=== PATIENT | female | born 1965 | race American Indian/Alaskan Native ===

== ENCOUNTER 2018-06-28 13:36 | Inpatient (IN) | payer BC ==
[2018-06-28] MEDS ORDERED: Sodium Chloride 0.9% 1,000 ML IV ONE (17:30)
--- NOTE | 2018-06-28 17:42 | C.PDOC ---
History Of Present Illness 52 years old female with no past medical history is sent to ED by Dr. Reed for admission for acute hepatitis, dehydration, and generalized weakness. Patient also complaints of chest pain. Denies back pain, abdominal pain, vomiting, diarrhea, smoking, drinking, drug use, or any other complaints. Patient states past surgical history of gall bladder removal. Allergies: * Codeine Time Seen by Provider: 06/28/18 17:15 Chief Complaint (Nursing): Back Pain History Per: Patient History/Exam Limitations: no limitations Onset/Duration Of Symptoms: Hrs Current Symptoms Are (Timing): Still Present Previous Symptoms: None Exacerbating Factor(s): Nothing Recent travel outside of the [place]: No Past Medical History Reviewed: Historical Data, Nursing Documentation, Vital Signs Vital Signs: Last Vital Signs Temp 98.7 F 06/28/18 16:08 Pulse 73 06/28/18 16:08 Resp 15 06/28/18 16:08 BP 140/85 06/28/18 16:08 Pulse Ox 100 06/28/18 16:08 - Medical History PMH: No Chronic Diseases Family History: States: No Known Family Hx - Social History Hx Alcohol Use: No Hx Substance Use: No Review Of Systems Constitutional: Positive for: Weakness, Other (Dehydration). Negative for: Fever, Chills Gastrointestinal: Negative for: Nausea, Vomiting, Diarrhea Skin: Negative for: Rash Neurological: Negative for: Weakness, Numbness Physical Exam - Physical Exam Appears: Well, Non-toxic, No Acute Distress Skin: Normal Color, Warm, Dry, No Rash Head: Atraumatic, Normacephalic Eye(s): bilateral: Other (Conjunctiva Mildly icterus ) Oral Mucosa: Moist Neck: Normal ROM, Supple Chest: Symmetrical, No Tenderness Cardiovascular: Rhythm Regular, No Murmur Respiratory: Normal Breath Sounds, No Rales, No Rhonchi, No Wheezing Gastrointestinal/Abdominal: Bowel Sounds, Soft, No Tenderness, No Distention, No Guarding Extremity: Normal ROM Extremity: Bilateral: Atraumatic, Normal Color And Temperature, Normal ROM Pulses: Left Radial: Normal, Right Radial: Normal Neurological/Psych: Oriented x3, Normal Speech Gait: Steady ED Course And Treatment - Laboratory Results Result Diagrams: 06/28/18 17:59 06/28/18 17:59 ECG: Interpreted By Me, Viewed By Me ECG Rhythm: Sinus Rhythm Interpretation Of ECG: Normal axis, normal intervals, LVH, no ST elevation, non specific ST wave changes. Negative for ischemia Rate From EC (BPM) O2 Sat by Pulse Oximetry: 100 (RA) Pulse Ox Interpretation: Normal - Other Rad CXR X-Ray: Viewed By Me, Read By Radiologist Interpretation: Date of service: 06/28/2018. HISTORY: chest pain. COMPARISON: No prior. TECHNIQUE: Chest PA and lateral. FINDINGS: LUNGS: No active pulmonary disease. PLEURA: No significant pleural effusion identified. No pneumothorax apparent. CARDIOVASCULAR: No aortic atherosclerotic calcification present. Normal cardiac size. No pulmonary vascular congestion. OSSEOUS STRUCTURES: No significant abnormalities. VISUALIZED UPPER ABDOMEN: Normal. OTHER FINDINGS: None. IMPRESSION: No active disease. - CT Scan/US CT abd/pelvis Other Rad Studies (CT/US): Read By Radiologist, Radiology Report Reviewed CT/US Interpretation: EXAM: CT Abdomen with IV contrast. CLINICAL HISTORY: Ru q pain. TECHNIQUE: Axial computed tomography images of the abdomen and pelvis with intravenous contrast. 0.00 mGy-cm. CONTRAST: With; 100MLS OMNI 300. COMPARISON: None provided. FINDINGS: LUNG BASES: The lung bases appear clear. No pleural effusions are seen. LIVER: Unremarkable. GALLBLADDER AND BILE DUCTS: Gallbladder has been surgically removed and there appears to be mild dilatation of the intrahepatic as well as extrahepatic biliary duct system. PANCREAS: Unremarkable. SPLEEN: Unremarkable. ADRENAL GLANDS: Unremarkable. KIDNEYS, URETERS, AND BLADDER: The kidneys appear within normal limits. There is no hydronephrosis or hydroureter. No urinary calculi are seen. Small calcified fibroid suspected within the left side of the uterus. STOMACH AND BOWEL: Unremarkable appearance of the stomach and bowel. No evidence of bowel obstruction. No evidence suggesting enteritis or colitis. APPENDIX: No evidence of acute appendicitis on CT examination. PERITONEUM: No free fluid. No free air. Small periumbilical hernia containing fat noted. LYMPH NODES: No lymphadenopathy is evident. VASCULATURE: No evidence of abdominal aortic aneurysm. BONES: No aggressive appearing osseous lesion. No acute osseous pathology evident. IMPRESSION: Status post cholecystectomy. Dilatation of the biliary duct system suspected. Clinical correlation and correlation with ul trasound examination of the right upper quadrant of the abdomen recommended. Small calcified fibroid within the uterus. . Electronically signed on Jun 28, 2018 8:15:39 PM EST by: Niko Persaud M.D., Certified by [facility], Diagnostic Radiology. US abdomen Other Rad Studies (CT/US): Read By Radiologist, Radiology Report Reviewed CT/US Interpretation: Clinical history: elevated liver function tests. Findings: The pancreas is limited in visualization secondary to overlying bowel gas, but appears grossly unremarkable. There is normal portal venous blood flow. The liver demonstrates increased echotexture and echogenicity, with no mass les ions. The liver is borderline enlarged measuring 19.9 cm in longest diameter. The gallbladder is absent. The common bile duct measures 10 mm and is within normal limits. The right kidney measures 9.8 cm in length. There is no evidence of hydronephrosis or nephrolithiasis. There is no ascites. Impression: Fatty infiltration of the liver with hepatomegaly. No other acute findings. . Electronically signed on Jun 28, 2018 11:16:34 PM EST by: Vijay Hernandez M.D., Certified by [facility] Medical Decision Making Medical Decision Making: Plan: * IV Fluids * Blood work * EKG * CXR * CT Abdomen& Pelvis * Urinalysis 23:05- Discussed patient with Dr. Reed who accepts the patient for admission and wants patient to have hepatitis panel done Disposition Counseled Patient/Family Regarding: Studies Performed, Diagnosis - Disposition Disposition: HOSPITALIZED Disposition Time: 23:05 Condition: STABLE Instructions: Weakness (ED) Forms: [facility] (Bengali) - Clinical Impression Clinical Impression: Hepatitis, Dehydration, Generalized weakness - Scribe Statement The provider has reviewed the documentation as recorded by the Romaineibyousif Hernandez All medical record entries made by the Scribe were at my direction and personally dictated by me. I have reviewed the chart and agree that the record accurately reflects my personal performance of the history, physical exam, medical decision making, and the department course for this patient. I have also personally directed, reviewed, and agree with the discharge instructions and disposition.
[2018-06-28] MEDS ORDERED: Sodium Chloride 0.9% 1,000 ML ONE (17:43)
[2018-06-28 18:04] LABS: BASO # 0.1 K/uL (0.0-0.2); BASO % 1.2 % (0.0-2.0); EOS # 0.2 K/uL (0.0-0.7); EOS % 3.2 % (0.0-4.0); HEMOGLOBIN 13.7 g/dL (11.0-16.0); LYMPH % 41.1 % (20.0-40.0); MEAN CELL VOLUME 95.4 fL (81.0-99.0); MEAN CORPUSCULAR HEMOGLOBIN 31.8 pg (27.0-31.0); MEAN CORPUSCULAR HGB CONC 33.3 g/dL (33.0-37.0); MEAN PLATELET VOLUME 11.6 fL (7.2-11.7); MONO # 0.5 K/uL (0.0-0.8); NEUT # 2.1 K/uL (1.8-7.0); NEUT % 43.5 % (50.0-75.0); NRBC % 0.2 % (0.0-2.0); RBC 4.31 Mil/uL (3.80-5.20); RED CELL DISTRIBUTION WIDTH 14.5 % (11.5-14.5); WHITE BLOOD COUNT 4.9 K/uL (4.8-10.8)
[2018-06-28 18:16] LABS: SQUAMOUS EPITHIAL 14 /hpf (0-5); URINE BACTERIA MOD (<OCC); URINE BILIRUBIN NEGATIVE (NEGATIVE); URINE BLOOD NEGATIVE (NEGATIVE); URINE CLARITY Hazy (Clear); URINE COLOR Yellow (YELLOW); URINE GLUCOSE (UA) NORMAL (Normal); URINE LEUKOCYTE ESTERASE NEG Leu/uL (Negative); URINE PROTEIN NEGATIVE (NEGATIVE); URINE UROBILINOGEN NORMAL mg/dL (0.2-1.0)
[2018-06-28 18:17] LABS: ALB/GLOB RATIO 0.7 (1.0-2.1); ALBUMIN 4.2 g/dL (3.5-5.0); BLOOD UREA NITROGEN 11 mg/dL (7-17); CALCIUM 9.2 mg/dl (8.6-10.4); GFR NON-AFRICAN AMERICAN > 60; LIPASE 228 U/L (23-300)
--- NOTE | 2018-06-28 18:20 | RAD ---
Date of service: 06/28/2018 HISTORY: chest pain COMPARISON: No prior. TECHNIQUE: Chest PA and lateral FINDINGS: LUNGS: No active pulmonary disease. PLEURA: No significant pleural effusion identified. No pneumothorax apparent. CARDIOVASCULAR: No aortic atherosclerotic calcification present. Normal cardiac size. No pulmonary vascular congestion. OSSEOUS STRUCTURES: No significant abnormalities. VISUALIZED UPPER ABDOMEN: Normal. OTHER FINDINGS: None. IMPRESSION: No active disease.
[2018-06-28 18:53] LABS: ALT/SGPT 1177 U/L (9-52); AST/SGOT 977 U/L (14-36)
[2018-06-28] MEDS ORDERED: Iohexol 300 100 ML IJ ONE (19:05)
--- NOTE | 2018-06-29 00:01 | CP.PCM.HP ---
History of Present Illness - History of Present Illness History of Present Illness: 52 y.o. lady with no significant medical history came for check up found to have very high LFTS, with no abdominal pain, but reports dry lips, fealing weak, fatigue ,and an episode of yellow eyes, patient was advised to go to ER . In ER CT abdomen showed Biliary Duct dilataion post cholecystectomy. with very high LFTs patient was admitted subsequently for further evaluation and management ROS denies fever , vomiting abdominal pain, diarrhea reports some chest pain- some difficulty breathing , achy joints, no shortness of breath Medical n no significant past Mdical history other than borderline sugar and bordrline cholesterol Surgery Cholecystectomy Social non Etoh non smoker Present on Admission - Present on Admission Any Indicators Present on Admission: No History of DVT/PE: No History of Uncontrolled Diabetes: No Urinary Catheter: No Decubitus Ulcer Present: No Review of Systems - Constitutional Constitutional: Fatigue, Weakness. absent: Anorexia - EENT Eyes: absent: Blurred Vision, Other Visual Disturbances Ears: absent: Ear Discharge, Ear Pain, Dizziness Nose/Mouth/Throat: absent: Epistaxis, Nasal Congestion, Sore Throat, Neck Pain - Breasts Breasts: absent: Pain - Cardiovascular Cardiovascular: absent: Leg Edema, Syncope - Respiratory Respiratory: absent: Cough, Dyspnea, Pain on Inspiration, Chest Congestion - Gastrointestinal Gastrointestinal: absent: Abdominal Pain, Diarrhea, Vomiting - Genitourinary Genitourinary: absent: Difficulty Urinating - Musculoskeletal Musculoskeletal: absent: Abnormal Gait, Deformity, Joint Swelling, Limited Range of Motion - Integumentary Integumentary: absent: Skin Ulcer, Jaundice - Neurological Neurological: absent: Abnormal Gait, Abnormal Movements, Convulsions, Disequilibrium, Loss of Vision - Psychiatric Psychiatric: absent: Behavioral Changes, Confusion, Depression, Visual Jonah lucinations - Endocrine Endocrine: Polydipsia ( and dry lips). absent: Palpitations, Polyphagia, Polyuria - Hematologic/Lymphatic Hematologic: absent: Easy Bleeding, Easy Bruising Past Patient History - Past Social History Smoking Status: Never Smoked - PSYCHIATRIC Hx Substance Use: No Meds Allergies/Adverse Reactions: Allergies Allergy/AdvReac Type Severity Reaction Status Date / Time codeine Allergy Verified 06/28/18 14:07 Physical Exam - Constitutional Appears: Non-toxic, No Acute Distress - Head Exam Head Exam: ATRAUMATIC, NORMOCEPHALIC - Eye Exam Eye Exam: Normal appearance. absent: Nystagmus (conjuntivae , trace yellow hue color ) - ENT Exam ENT Exam: Mucous Membranes Dry ( lips dry ) - Neck Exam Neck exam: Positive for: Full Rom. Negative for: Tenderness - Respiratory Exam Respiratory Exam: Clear to Auscultation Bilateral, NORMAL BREATHING PATTERN - Cardiovascular Exam Cardiovascular Exam: REGULAR RHYTHM - GI/Abdominal Exam GI & Abdominal Exam: Normal Bowel Sounds, Soft. absent: Distended, Guarding, Rebound, Tenderness - Extremities Exam Extremities exam: Positive for: full ROM, pedal pulses present. Negative for: joint swelling, pedal edema, tenderness - Back Exam Back exam: absent: tenderness - Neurological Exam Neurological exam: Alert, Normal Gait, Oriented x3 - Psychiatric Exam Psychiatric exam: Normal Affect, Normal Mood - Skin Skin Exam: Intact, Normal Color (no jaundice) Results - Vital Signs Recent Vital Signs: Last Vital Signs Temp 97.9 F 06/28/18 23:37 Pulse 88 06/28/18 23:37 Resp 18 06/28/18 23:37 BP 154/90 H 06/28/18 20:05 Pulse Ox 99 06/28/18 23:37 - Labs Result Diagrams: 06/28/18 17:59 06/28/18 17:59 Labs: Laboratory Results - last 24 hr 06/28/18 06/28/18 06/28/18 17:59 17:59 17:59 WBC 4.9 RBC 4.31 Hgb 13.7 Hct 41.1 MCV 95.4 MCH 31.8 H MCHC 33.3 RDW 14.5 Plt Count 246 MPV 11.6 Neut % (Auto) 43.5 L Lymph % (Auto) 41.1 H [place] % (Auto) 11.0 H Eos % (Auto) 3.2 Baso % (Auto) 1.2 Neut # (Auto) 2.1 Lymph # (Auto) 2.0 [place] # (Auto) 0.5 Eos # (Auto) 0.2 Baso # (Auto) 0.1 Sodium 138 Potassium 3.8 Chloride 100 Carbon Dioxide 27 Anion Gap 15 BUN 11 Creatinine 0.7 Est GFR ( Amer) > 60 Est GFR (Non-Af Amer) > 60 Random Glucose 84 Calcium 9.2 Total Bilirubin 3.1 H AST 977 H ALT 1177 H Alkaline Phosphatase 225 H Troponin I < 0.0120 Total Protein 10.1 H Albumin 4.2 Globulin 5.9 H Albumin/Globulin Ratio 0.7 L Lipase 228 Urine Color Yellow Urine Clarity Hazy Urine pH 7.0 Ur Specific [place] 1.006 Urine Protein Negative Urine Glucose (UA) Normal Urine Ketones Negative Urine Blood Negative Urine Nitrate Negative Urine Bilirubin Negative Urine Urobilinogen Normal Ur Leukocyte Esterase Neg Urine WBC (Auto) 6 H Urine RBC (Auto) 2 Ur Squamous Epith Cells 14 H Urine Bacteria Mod H Urine HCG, Qual 06/28/18 17:59 WBC RBC Hgb Hct MCV MCH MCHC RDW Plt Count MPV Neut % (Auto) Lymph % (Auto) [place] % (Auto) Eos % (Auto) Baso % (Auto) Neut # (Auto) Lymph # (Auto) [place] # (Auto) Eos # (Auto) Baso # (Auto) Sodium Potassium Chloride Carbon Dioxide Anion Gap BUN Creatinine Est GFR ( Amer) Est GFR (Non-Af Amer) Random Glucose Calcium Total Bilirubin AST ALT Alkaline Phosphatase Troponin I Total Protein Albumin Globulin Albumin/Globulin Ratio Lipase Urine Color Urine Clarity Urine pH Ur Specific [place] Urine Protein Urine Glucose (UA) Urine Ketones Urine Blood Urine Nitrate Urine Bilirubin Urine Urobilinogen Ur Leukocyte Esterase Urine WBC (Auto) Urine RBC (Auto) Ur Squamous Epith Cells Urine Bacteria Urine HCG, Qual Negative Assessment & Plan - Assessment and Plan (Free Text) Assessment: Patient with no significant PMH other than history of cholecystectomy years ago, came due to weakness, feeling dry, achy body , episode of yellow eyes, labs very high LFT to hold other OTC /herbal meds =discussed with patient Ct abdomen- Biliary Obstruction will put on IVF place on NPO GI prophylaxis Hepatitis panel GI consult for DVT prophylaxis-due to Hepatic Dysfunction awaiting Coag study (ordered ) for chest pain and difficulty breathing - will do VQ scan to rule out , first Troponin negative , will complete x3 2 D Echo - Date & Time Date: 06/28/18 Time: 11:00
[2018-06-29 00:07] LABS: INR 1.2; PROTHROMBIN TIME 13.2 SECONDS (9.7-12.2)
[2018-06-29 00:35] LABS: HEPATITIS B SURFACE AG Negative (NEGATIVE)
[2018-06-29 00:40] LABS: HEPATITIS A IGM NEGATIVE (NEGATIVE); HEPATITIS B CORE AB NEGATIVE (NEGATIVE)
[2018-06-29] MEDS ORDERED: Sodium Chloride 0.9% 1,000 ML ONE (00:50)
[2018-06-29 00:52] LABS: HEPATITIS C ANTIBODY NEGATIVE (NEGATIVE)
[2018-06-29] MEDS: Sodium Chloride 0.9% 1,000 ML IV SCH ×3 (00:54→19:45)
[2018-06-29 03:39] LABS: CK-MB 2.09 ng/mL (0.0-3.38)
--- NOTE | 2018-06-29 08:01 | CP.PCM.PN ---
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, Discussed her CT findings and possible GI procedure othe rwise, no abdominal pain, no vomiting , patient seen, still in ER bed, upstairs, full house, patient understood was thinking of MRI but finally agreed, further discussion Иван salazar patient has no other complaints she is more active now and more actively vocal than yesterday (weak) she is aware of the plan Objective - Vital Signs/Intake and Output Vital Signs (last 24 hours): Temp Pulse Resp BP Pulse Ox 98.3 F 83 18 173/104 H 100 06/29/18 06:00 06/29/18 07:34 06/29/18 07:34 06/29/18 07:34 06/29/18 07:34 - Medications Medications: Current Medications Sodium Chloride (Sodium Chloride 0.9%) 1,000 mls @ 100 mls/hr IV .Q10H JIM Last Admin: 06/29/18 00:54 Dose: 100 mls/hr Pantoprazole Sodium (Protonix Inj) 40 mg IVP DAILY JIM - Labs Labs: 06/28/18 17:59 06/28/18 17:59 PT 13.2 SECONDS (9.7-12.2) H 06/28/18 23:55 INR 1.2 06/28/18 23:55 APTT 36 SECONDS (21-34) H 06/28/18 23:55 - Constitutional Appears: No Acute Distress - Head Exam Head Exam: ATRAUMATIC, NORMOCEPHALIC - Eye Exam Eye Exam: Normal appearance. absent: Nystagmus, Periorbital swelling - ENT Exam ENT Exam: Mucous Membranes Moist - Respiratory Exam Respiratory Exam: Clear to Ausculation Bilateral, NORMAL BREATHING PATTERN - Cardiovascular Exam Cardiovascular Exam: REGULAR RHYTHM - GI/Abdominal Exam GI & Abdominal Exam: Soft, Normal Bowel Sounds. absent: Tenderness - Extremities Exam Extremities Exam: Full ROM. absent: Joint Swelling, Pedal Edema - Back Exam Back Exam: Full ROM - Neurological Exam Neurological Exam: Alert, Awake, Normal Gait, Oriented x3 - Psychiatric Exam Psychiatric exam: Normal Affect, Normal Mood - Skin Skin Exam: Intact, Normal Color Assessment and Plan - Assessment and Plan (Free Text) Assessment: Patient with severe LFT elevation with questionable Biliary duct obstruction- (post cholecystectomy) for MRCP, NPO no other PMH continue IVF follow up labs prolonged COAG- mild- will do SCD for DVT prophylaxis continue ppi presentation of chest pain and dyspnea- VQ scan and 2 D echo further discussion with patient
--- NOTE | 2018-06-29 08:13 | CP.PCM.CON ---
History of Present Illness - History of Present Illness History of Present Illness: 52 yo female no PMH- found to have elev LFTs. Feels weak, achy, CP Denies abdom pain, fever, chills. + jaundice recently- " which is improving". Review of Systems - Constitutional Constitutional: Anorexia, Fatigue, Weakness. absent: Fever, Weight Gain, Weight Loss - EENT Eyes: absent: Photophobia Nose/Mouth/Throat: absent: Throat Swelling - Cardiovascular Cardiovascular: Chest Pain, Dyspnea - Respiratory Respiratory: absent: Cough, Wheezing - Gastrointestinal Gastrointestinal: absent: Abdominal Pain, Hematemesis, Hematochezia, Loose Stools, Melena, Vomiting - Genitourinary Genitourinary: absent: Hematuria - Musculoskeletal Musculoskeletal: absent: Muscle Cramps - Integumentary Integumentary: Jaundice - Neurological Neurological: absent: Convulsions Past Patient History - Past Social History Smoking Status: Never Smoked - PSYCHIATRIC Hx Substance Use: No Meds Allergies/Adverse Reactions: Allergies Allergy/AdvReac Type Severity Reaction Status Date / Time codeine Allergy Verified 06/28/18 14:07 - Medications Medications: Current Medications Sodium Chloride (Sodium Chloride 0.9%) 1,000 mls @ 100 mls/hr IV .Q10H [facility] Last Admin: 06/29/18 00:54 Dose: 100 mls/hr Pantoprazole Sodium (Protonix Inj) 40 mg IVP DAILY [facility] Physical Exam - Constitutional Appears: Well - Respiratory Exam Respiratory Exam: Clear to Auscultation Bilateral - Cardiovascular Exam Cardiovascular Exam: RRR - GI/Abdominal Exam GI & Abdominal Exam: Normal Bowel Sounds, Soft. absent: Guarding, Mass, Rebound, Tenderness - Extremities Exam Extremities exam: Negative for: pedal edema - Neurological Exam Neurological exam: Alert, Oriented x3 Results - Vital Signs Recent Vital Signs: Last Vital Signs Temp 98.3 F 06/29/18 06:00 Pulse 83 06/29/18 07:34 Resp 18 06/29/18 07:34 BP 173/104 H 06/29/18 07:34 Pulse Ox 100 06/29/18 07:34 - Labs Result Diagrams: 06/28/18 17:59 06/28/18 17:59 Labs: Laboratory Results - last 24 hr 06/28/18 06/28/18 06/28/18 17:59 17:59 17:59 WBC 4.9 RBC 4.31 Hgb 13.7 Hct 41.1 MCV 95.4 MCH 31.8 H MCHC 33.3 RDW 14.5 Plt Count 246 MPV 11.6 Neut % (Auto) 43.5 L Lymph % (Auto) 41.1 H [place] % (Auto) 11.0 H Eos % (Auto) 3.2 Baso % (Auto) 1.2 Neut # (Auto) 2.1 Lymph # (Auto) 2.0 [place] # (Auto) 0.5 Eos # (Auto) 0.2 Baso # (Auto) 0.1 PT INR APTT Sodium 138 Potassium 3.8 Chloride 100 Carbon Dioxide 27 Anion Gap 15 BUN 11 Creatinine 0.7 Est GFR ( Amer) > 60 Est GFR (Non-Af Amer) > 60 Random Glucose 84 Calcium 9.2 Total Bilirubin 3.1 H AST 977 H ALT 1177 H Alkaline Phosphatase 225 H Total Creatine Kinase CK-MB (Mass) Troponin I < 0.0120 Total Protein 10.1 H Albumin 4.2 Globulin 5.9 H Albumin/Globulin Ratio 0.7 L Lipase 228 Urine Color Yellow Urine Clarity Hazy Urine pH 7.0 Ur Specific [place] 1.006 Urine Protein Negative Urine Glucose (UA) Normal Urine Ketones Negative Urine Blood Negative Urine Nitrate Negative Urine Bilirubin Negative Urine Urobilinogen Normal Ur Leukocyte Esterase Neg Urine WBC (Auto) 6 H Urine RBC (Auto) 2 Ur Squamous Epith Cells 14 H Urine Bacteria Mod H Urine HCG, Qual Hepatitis A IgM Ab Hep Bs Antigen Hep B Core IgM Ab Hepatitis C Antibody 06/28/18 06/28/18 06/28/18 17:59 23:55 23:55 WBC RBC Hgb Hct MCV MCH MCHC RDW Plt Count MPV Neut % (Auto) Lymph % (Auto) [place] % (Auto) Eos % (Auto) Baso % (Auto) Neut # (Auto) Lymph # (Auto) [place] # (Auto) Eos # (Auto) Baso # (Auto) PT 13.2 H INR 1.2 APTT 36 H Sodium Potassium Chloride Carbon Dioxide Anion Gap BUN Creatinine Est GFR ( Amer) Est GFR (Non-Af Amer) Random Glucose Calcium Total Bilirubin AST ALT Alkaline Phosphatase Total Creatine Kinase CK-MB (Mass) Troponin I Total Protein Albumin Globulin Albumin/Globulin Ratio Lipase Urine Color Urine Clarity Urine pH Ur Specific [place] Urine Protein Urine Glucose (UA) Urine Ketones Urine Blood Urine Nitrate Urine Bilirubin Urine Urobilinogen Ur Leukocyte Esterase Urine WBC (Auto) Urine RBC (Auto) Ur Squamous Epith Cells Urine Bacteria Urine HCG, Qual Negative Hepatitis A IgM Ab Negative Hep Bs Antigen Negative Hep B Core IgM Ab Negative Hepatitis C Antibody Negative 06/29/18 03:14 WBC RBC Hgb Hct MCV MCH MCHC RDW Plt Count MPV Neut % (Auto) Lymph % (Auto) [place] % (Auto) Eos % (Auto) Baso % (Auto) Neut # (Auto) Lymph # (Auto) [place] # (Auto) Eos # (Auto) Baso # (Auto) PT INR APTT Sodium Potassium Chloride Carbon Dioxide Anion Gap BUN Creatinine Est GFR ( Amer) Est GFR (Non-Af Amer) Random Glucose Calcium Total Bilirubin AST ALT Alkaline Phosphatase Total Creatine Kinase 205 H CK-MB (Mass) 2.09 Troponin I < 0.0120 Total Protein Albumin Globulin Albumin/Globulin Ratio Lipase Urine Color Urine Clarity Urine pH Ur Specific [place] Urine Protein Urine Glucose (UA) Urine Ketones Urine Blood Urine Nitrate Urine Bilirubin Urine Urobilinogen Ur Leukocyte Esterase Urine WBC (Auto) Urine RBC (Auto) Ur Squamous Epith Cells Urine Bacteria Urine HCG, Qual Hepatitis A IgM Ab Hep Bs Antigen Hep B Core IgM Ab Hepatitis C Antibody Assessment & Plan (1) Dehydration Status: Acute (2) Hepatitis Assessment and Plan: Consider meds: vitamins and herbals. Hep profile is neg. Denies etoh, TYLENOL s/p VALARIE. Ductal dil- mild- doubt biliary obstruction. CT and sono noted. Consider fatty liver. REC: Check LFTs, [place], EBV, CMV, CONSIDER MRCP. Status: Acute
--- NOTE | 2018-06-29 09:36 | CT ---
Date of service: 06/28/2018 PROCEDURE: CT Abdomen and Pelvis with contrast HISTORY: abd pain COMPARISON: None. TECHNIQUE: Contrast dose: 100 mL of Omnipaque 300 intravenously. Axial and reformatted coronal and sagittal CT images of the abdomen and pelvis were obtained after IV contrast administration. Radiation dose: Total exam DLP = 1033.26 mGy-cm. This CT exam was performed using one or more of the following dose reduction techniques: Automated exposure control, adjustment of the mA and/or kV according to patient size, and/or use of iterative reconstruction technique. FINDINGS: LOWER THORAX: Unremarkable. LIVER: Mild hepatomegaly is noted. There is mild intrahepatic biliary ductal dilatation noted. The portal vein is patent. GALLBLADDER AND BILE DUCTS: Status post cholecystectomy. The common bile duct is slightly prominent in size. PANCREAS: Unremarkable. No gross lesion or ductal dilatation. SPLEEN: Unremarkable. ADRENALS: Unremarkable. No mass. KIDNEYS AND URETERS: Unremarkable. No hydronephrosis. No solid mass. VASCULATURE: Unremarkable. No aortic aneurysm. No aortic atherosclerotic calcification or mural plaque present. BOWEL: Unremarkable. No obstruction. No gross mural thickening. APPENDIX: There is no evidence of appendicitis. PERITONEUM: Unremarkable. No free fluid. No free air. LYMPH NODES: Unremarkable. No enlarged lymph nodes. BLADDER: Unremarkable. REPRODUCTIVE: Small focal calcification noted in the left aspect of the pelvis likely represent calcified fibroid. BONES: No acute fracture. OTHER FINDINGS: None. IMPRESSION: Mild intrahepatic biliary ductal dilatation. Status post cholecystectomy. If clinically warranted further assessment by ultrasound or MRCP may be obtained. No evidence of acute pathology otherwise in the abdomen and pelvis. Preliminary report was submitted by [facility] Radiology contains concordant findings.
--- NOTE | 2018-06-29 10:23 | US ---
Date of service: 06/28/2018 HISTORY: elevated LFTs, dilatation of biliary duct on CT COMPARISON: CT abdomen and pelvic report 06/28/2018 TECHNIQUE: Sonographic evaluation of the right upper quadrant of the abdomen. FINDINGS: LIVER: Measures 19.9 cm in length. Mild increased echogenicity of the liver parenchyma. No mass. Mild intrahepatic periportal bile duct dilatation suggested GALLBLADDER: Removed COMMON BILE DUCT: Measures 1.04 cm no stones. For post cholecystectomy status this is near the upper limits of normal and/or just beyond it PANCREAS: Unremarkable as visualized. No mass. No ductal dilatation. RIGHT KIDNEY: Measures 9.8 x 4.9 x 5.8 cm in length. Normal echogenicity. No calculus, mass, or hydronephrosis. AORTA: No aneurysmal dilatation. IVC: Unremarkable. OTHER FINDINGS: None . IMPRESSION: Status post cholecystectomy with common bile duct measuring 1.04 cm-this is within the near the upper limits of normal and/or just beyond what is considered top-normal for post cholecystectomy status. Hepatomegaly with probable diffuse fatty infiltration Concordant results (preliminary interpretation) provided by brice.
[2018-06-29 14:34] VITALS: RESP 20
[2018-06-29 14:45] LABS: CK-MB 1.56 ng/mL (0.0-3.38)
--- NOTE | 2018-06-29 16:35 | CARD ---
APPROVED REPORT Date of service: 06/29/2018 EXAM: Two-dimensional and M-mode echocardiogram with Doppler and color Doppler. Other Information Quality : GoodRhythm : INDICATION Syncope 2D DIMENSIONS IVSd1.0 (0.7-1.1cm)LVDd4.6 (3.9-5.9cm) PWd0.9 (0.7-1.1cm)LA Pqhiin28 (18-58mL) LVDs3.1 (2.5-4.0cm)FS (%) 32.3 % LVEF (%)60.6 (>50%)LVEF (Knight's)60.54 % M-Mode DIMENSIONS Left Atrium (MM)3.68 (2.5-4.0cm)IVSd0.97 (0.7-1.1cm) Aortic Root3.06 (2.2-3.7cm)LVDd5.08 (4.0-5.6cm) Aortic Cusp Exc.2.23 (1.5-2.0cm)PWd0.83 (0.7-1.1cm) FS (%) 31 %LVDs3.51 (2.0-3.8cm) LVEF (%)58 (>50%) Mitral Valve MV E Snnntfmv06.4cm/sMV A Zxcxctxv51.4cm/sE/A ratio1.0 TDI Lateral E' Peak V9.77cm/sMedial E' Peak V4.80cm/sE/Lateral E'7.0 E/Medial E'14.3 Tricuspid Valve TR Peak Uiqrtash578tn/sTR Peak Gr.[id number] LEFT VENTRICLE The left ventricle is normal size. There is normal left ventricular wall thickness. The left ventricular function is normal. The left ventricular ejection fraction is within the normal range. There is normal LV segmental wall motion. Transmitral Doppler flow pattern is Grade I-abnormal relaxation pattern. RIGHT VENTRICLE The right ventricle is normal size. There is normal right ventricular wall thickness. The right ventricular systolic function is normal. ATRIA The left atrium size is normal. The right atrium size is normal. AORTIC VALVE The aortic valve is normal in structure. There is trace aortic regurgitation. There is no aortic valvular stenosis. MITRAL VALVE The mitral valve is normal in structure. There is no evidence of mitral valve prolapse. There is no mitral valve stenosis. There is no mitral valve regurgitation noted. TRICUSPID VALVE The tricuspid valve is normal in structure. There is trace to mild tricuspid regurgitation. PULMONIC VALVE There is mild pulmonic valvular regurgitation. GREAT VESSELS The aortic root is normal in size. The IVC is normal in size and collapses >50% with inspiration. <Conclusion> The left ventricle is normal size. There is normal left ventricular wall thickness. The left ventricular function is normal. The left ventricular ejection fraction is within the normal range. There is normal LV segmental wall motion. Transmitral Doppler flow pattern is Grade I-abnormal relaxation pattern.
--- NOTE | 2018-06-29 17:09 | CARD ---
APPROVED REPORT Date of service: 06/28/2018 EKG Measurement Heart [id number] ID [id number] <Conclusion> Normal sinus rhythm Moderate voltage criteria for LVH, may be normal variant Borderline ECG
[2018-06-29 20:51] LABS: INR 1.3; PROTHROMBIN TIME 14.6 SECONDS (9.7-12.2)
[2018-06-29 21:06] LABS: ALB/GLOB RATIO 0.7 (1.0-2.1); ALBUMIN 3.9 g/dL (3.5-5.0); BLOOD UREA NITROGEN 9 mg/dL (7-17); GFR NON-AFRICAN AMERICAN > 60
[2018-06-29 21:12] LABS: ALT/SGPT 1008 U/L (9-52); AST/SGOT 1000 U/L (14-36)
--- NOTE | 2018-06-29 22:39 | CP.PCM.CON ---
History of Present Illness - History of Present Illness History of Present Illness: 52 y.o. lady with no significant medical history came for check up found to have very high LFTS, with no abdominal pain, possible jaundice C/O atypical chest pain ROS denies fever , vomiting abdominal pain, diarrhea reports some chest pain- some difficulty breathing , achy joints, no shortness of breath Medical n no significant past Mdical history other than borderline sugar and bordrline cholesterol Surgery Cholecystectomy Social non Etoh non smoker Review of Systems - Constitutional Constitutional: Fatigue, Weakness. absent: Anorexia - EENT Eyes: absent: Blurred Vision, Other Visual Disturbances Ears: absent: Ear Discharge, Ear Pain, Dizziness Nose/Mouth/Throat: absent: Epistaxis, Nasal Congestion, Sore Throat, Neck Pain - Breasts Breasts: absent: Pain - Cardiovascular Cardiovascular: absent: Leg Edema, Syncope - Respiratory Respiratory: absent: Cough, Dyspnea, Pain on Inspiration, Chest Congestion - Gastrointestinal Gastrointestinal: absent: Abdominal Pain, Diarrhea, Vomiting - Genitourinary Genitourinary: absent: Difficulty Urinating - Musculoskeletal Musculoskeletal: absent: Abnormal Gait, Deformity, Joint Swelling, Limited Range of Motion - Integumentary Integumentary: absent: Skin Ulcer, Jaundice - Neurological Neurological: absent: Abnormal Gait, Abnormal Movements, Convulsions, Disequilibrium, Loss of Vision - Psychiatric Psychiatric: absent: Behavioral Changes, Confusion, Depression, Visual Hallucinations - Endocrine Endocrine: Polydipsia ( and dry lips). absent: Palpitations, Polyphagia, Polyuria - Hematologic/Lymphatic Hematologic: absent: Easy Bleeding, Easy Bruising Past Patient History - Past Social History Smoking Status: Never Smoked - PSYCHIATRIC Hx Substance Use: No Meds Allergies/Adverse Reactions: Allergies Allergy/AdvReac Type Severity Reaction Status Date / Time codeine Allergy Verified 06/28/18 14:07 Physical Exam - Constitutional Appears: Non-toxic, No Acute Distress - Head Exam Head Exam: ATRAUMATIC, NORMOCEPHALIC - Eye Exam Eye Exam: Normal appearance. absent: Nystagmus (conjuntivae , trace yellow hue color ) - ENT Exam ENT Exam: Mucous Membranes Dry ( lips dry ) - Neck Exam Neck exam: Positive for: Full Rom. Negative for: Tenderness - Respiratory Exam Respiratory Exam: Clear to Auscultation Bilateral, NORMAL BREATHING PATTERN - Cardiovascular Exam Cardiovascular Exam: REGULAR RHYTHM - GI/Abdominal Exam GI & Abdominal Exam: Normal Bowel Sounds, Soft. absent: Distended, Guarding, Rebound, Tenderness - Extremities Exam Extremities exam: Positive for: full ROM, pedal pulses present. Negative for: joint swelling, pedal edema, tenderness - Back Exam Back exam: absent: tenderness - Neurological Exam Neurological exam: Alert, Normal Gait, Oriented x3 - Psychiatric Exam Psychiatric exam: Normal Affect, Normal Mood - Skin Skin Exam: Intact, Normal Color (no jaundice) Assessment & Plan - Assessment and Plan (Free Text) Assessment: Patient with no significant PMH other than history of cholecystectomy years ago, came due to weakness, feeling dry, achy body , episode of yellow eyes, Atypical chest pain ECHO: Normal EF Medical mgt Past Patient History - Past Medical History & Family History Past Medical History?: No - Past Social History Smoking Status: Never Smoked - CARDIAC Hx Cardiac Disorders: No - PULMONARY Hx Respiratory Disorders: No - NEUROLOGICAL Hx Neurological Disorder: No - HEENT Hx HEENT Problems: No - RENAL Hx Chronic Kidney Disease: No - ENDOCRINE/METABOLIC Hx Endocrine Disorders: No - HEMATOLOGICAL/ONCOLOGICAL Hx Blood Disorders: No - INTEGUMENTARY Hx Dermatological Problems: No - MUSCULOSKELETAL/RHEUMATOLOGICAL Hx Musculoskeletal Disorders: No Hx Falls: No - GASTROINTESTINAL Hx Gastrointestinal Disorders: No Hx Gall Bladder Disease: Yes - GENITOURINARY/GYNECOLOGICAL Hx Genitourinary Disorders: No - PSYCHIATRIC Hx Psychophysiologic Disorder: No Hx Substance Use: No - SURGICAL HISTORY Hx Surgeries: Yes Hx Section: Yes Hx Cholecystectomy: Yes - ANESTHESIA Hx Anesthesia: Yes Hx Anesthesia Reactions: No Hx Malignant Hyperthermia: No Has any member of the family had a problem w/ anesthesia?: No Meds Allergies/Adverse Reactions: Allergies Allergy/AdvReac Type Severity Reaction Status Date / Time codeine Allergy Verified 06/28/18 14:07 - Medications Medications: Current Medications Sodium Chloride (Sodium Chloride 0.9%) 1,000 mls @ 100 mls/hr IV .Q10H [facility] Last Admin: 06/29/18 19:45 Dose: Not Given Influenza Virus Vaccine (Fluzone (36 Months - 7 Yrs)) 45 mcg IM .ONCE ONE Stop: 06/30/18 10:01 Pantoprazole Sodium (Protonix Inj) 40 mg IVP DAILY [facility] Last Admin: 06/29/18 10:14 Dose: 40 mg Pneumococcal Polyvalent Vaccine (Pneumovax 23 Vaccine) 0.5 ml IM .ONCE ONE Stop: 06/30/18 10:01 Results - Vital Signs Recent Vital Signs: Last Vital Signs Temp 99.4 F 06/29/18 16:00 Pulse 75 06/29/18 16:00 Resp 20 06/29/18 16:00 BP 154/85 H 06/29/18 16:00 Pulse Ox 96 06/29/18 16:00 - Labs Result Diagrams: 06/28/18 17:59 06/29/18 20:38 Labs: Laboratory Results - last 24 hr 06/28/18 06/28/18 06/29/18 23:55 23:55 03:14 PT 13.2 H INR 1.2 APTT 36 H Sodium Potassium Chloride Carbon Dioxide Anion Gap BUN Creatinine Est GFR ( Amer) Est GFR (Non-Af Amer) Random Glucose Calcium Total Bilirubin AST ALT Alkaline Phosphatase Total Creatine Kinase 205 H CK-MB (Mass) 2.09 Troponin I < 0.0120 Total Protein Albumin Globulin Albumin/Globulin Ratio Hepatitis A IgM Ab Negative Hep Bs Antigen Negative Hep B Core IgM Ab Negative Hepatitis C Antibody Negative 06/29/18 06/29/18 06/29/18 14:13 20:38 20:38 PT 14.6 H INR 1.3 APTT Sodium 138 Potassium 3.9 Chloride 102 Carbon Dioxide 26 Anion Gap 14 BUN 9 Creatinine 0.8 Est GFR ( Amer) > 60 Est GFR (Non-Af Amer) > 60 Random Glucose 157 H Calcium 9.0 Total Bilirubin 3.1 H AST 1000 H ALT 1008 H Alkaline Phosphatase 180 H Total Creatine Kinase 204 H CK-MB (Mass) 1.56 Troponin I < 0.0120 Total Protein 9.3 H Albumin 3.9 Globulin 5.4 H Albumin/Globulin Ratio 0.7 L Hepatitis A IgM Ab Hep Bs Antigen Hep B Core IgM Ab Hepatitis C Antibody
[2018-06-30 01:37] VITALS: O2SAT 98
[2018-06-30 02:03] LABS: CK-MB 1.73 ng/mL (0.0-3.38)
[2018-06-30] MEDS: Sodium Chloride 0.9% 1,000 ML IV SCH (05:14)
[2018-06-30 07:48] VITALS: BP 144/85; PULSE 75; TEMP 98.7
[2018-06-30 07:51] LABS: ALB/GLOB RATIO 0.7 (1.0-2.1); ALBUMIN 4.1 g/dL (3.5-5.0); BLOOD UREA NITROGEN 9 mg/dL (7-17); CALCIUM 8.9 mg/dl (8.6-10.4); GFR NON-AFRICAN AMERICAN > 60
--- NOTE | 2018-06-30 07:58 | CP.PCM.PN ---
Subjective - Date & Time of Evaluation Date of Evaluation: 06/30/18 Time of Evaluation: 00:00 - Subjective Subjective: chart review patient refused MRI king to claustrophobia LFTs still on the thousands ALT today down to 800'S ELHAM pending Hepatic panel negative chest pain resolved, EF normal afebrile BP went down, but noted on the high side no abdominal pain Patient seen is ready for home no complaints no pain aware of condition and plan she is aware of GI follow up and Education on OTC meds Objective - Vital Signs/Intake and Output Vital Signs (last 24 hours): Temp Pulse Resp BP Pulse Ox 98.7 F 75 20 144/85 98 06/30/18 07:46 06/30/18 07:46 06/30/18 07:46 06/30/18 07:46 06/30/18 07:46 Intake and Output: 06/30/18 06/30/18 06:59 18:59 Intake Total 1800 Balance 1800 - Medications Medications: Current Medications Sodium Chloride (Sodium Chloride 0.9%) 1,000 mls @ 100 mls/hr IV .Q10H [facility] Last Admin: 06/30/18 05:14 Dose: 100 mls/hr Influenza Virus Vaccine (Fluzone (36 Months - 7 Yrs)) 45 mcg IM .ONCE ONE Stop: 06/30/18 10:01 Pantoprazole Sodium (Protonix Inj) 40 mg IVP DAILY [facility] Last Admin: 06/29/18 10:14 Dose: 40 mg Pneumococcal Polyvalent Vaccine (Pneumovax 23 Vaccine) 0.5 ml IM .ONCE ONE Stop: 06/30/18 10:01 - Labs Labs: 06/28/18 17:59 06/30/18 07:20 PT 14.6 SECONDS (9.7-12.2) H 06/29/18 20:38 INR 1.3 06/29/18 20:38 APTT 36 SECONDS (21-34) H 06/28/18 23:55 - Constitutional Appears: Non-toxic, No Acute Distress - Head Exam Head Exam: ATRAUMATIC, NORMOCEPHALIC - Eye Exam Eye Exam: Normal appearance. absent: Nystagmus - ENT Exam ENT Exam: Mucous Membranes Moist - Respiratory Exam Respiratory Exam: Clear to Ausculation Bilateral, NORMAL BREATHING PATTERN - Cardiovascular Exam Cardiovascular Exam: REGULAR RHYTHM - GI/Abdominal Exam GI & Abdominal Exam: Soft, Normal Bowel Sounds. absent: Tenderness - Extremities Exam Extremities Exam: Full ROM. absent: Joint Swelling, Pedal Edema - Back Exam Back Exam: Full ROM. absent: muscle spasm, tenderness - Neurological Exam Neurological Exam: Alert, Awake, Normal Gait, Oriented x3 - Psychiatric Exam Psychiatric exam: Normal Affect, Normal Mood - Skin Skin Exam: Intact, Normal Color. 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
[2018-06-30 08:02] LABS: ALT/SGPT 1058 U/L (9-52); AST/SGOT 875 U/L (14-36)
[2018-06-30] MEDS ORDERED: Pneumococcal 23-Valent Vaccine IM ONE (10:00)
[2018-06-30] MEDS ORDERED: Influenza Virus Vaccine 45 mcg/0.5 ml Syr (36 months - 7 yrs) IM ONE (10:00)
--- NOTE | 2018-06-30 10:43 | CP.PCM.PN ---
Subjective - Date & Time of Evaluation Date of Evaluation: 06/30/18 Time of Evaluation: 10:37 - Subjective Subjective: f/u jaundice Wants to go home. Could not tolerate MRI. Feels well. Denies abdominal pain Liver chems little changed Objective - Vital Signs/Intake and Output Vital Signs (last 24 hours): Temp Pulse Resp BP Pulse Ox 98.7 F 75 20 144/85 98 06/30/18 07:46 06/30/18 07:46 06/30/18 07:46 06/30/18 07:46 06/30/18 07:46 Intake and Output: 06/30/18 06/30/18 06:59 18:59 Intake Total 1800 Balance 1800 - Medications Medications: Current Medications Sodium Chloride (Sodium Chloride 0.9%) 1,000 mls @ 100 mls/hr IV .Q10H [facility] Last Admin: 06/30/18 05:14 Dose: 100 mls/hr Pantoprazole Sodium (Protonix Inj) 40 mg IVP DAILY [facility] Last Admin: 06/30/18 10:04 Dose: 40 mg - Labs Labs: 06/28/18 17:59 06/30/18 07:20 PT 14.6 SECONDS (9.7-12.2) H 06/29/18 20:38 INR 1.3 06/29/18 20:38 APTT 36 SECONDS (21-34) H 06/28/18 23:55 - Constitutional Appears: Well, No Acute Distress - Head Exam Head Exam: NORMOCEPHALIC - Eye Exam Eye Exam: Scleral icterus - Neck Exam Neck Exam: Normal Inspection - Respiratory Exam Respiratory Exam: NORMAL BREATHING PATTERN - Cardiovascular Exam Cardiovascular Exam: REGULAR RHYTHM - GI/Abdominal Exam GI & Abdominal Exam: Soft. absent: Tenderness, Organomegaly Assessment and Plan (1) Hepatitis Assessment & Plan: Hepatocellular Disease- Likely DILI vs. AIH. Labwork pending December discharge and f/u in 9office in 2 weeks. D/W patient and Attending Status: Acute
--- NOTE | 2018-06-30 12:56 | CP.PCM.DIS ---
Provider - Provider Date of Admission: 06/28/18 23:16 Attending physician: Kaila Kauffman MD Time Spent in preparation of Discharge (in minutes): 30 Hospital Course - Lab Results Lab Results: Most Recent Lab Values WBC 4.9 K/uL (4.8-10.8) 06/28/18 17:59 RBC 4.31 Mil/uL (3.80-5.20) 06/28/18 17:59 Hgb 13.7 g/dL (11.0-16.0) 06/28/18 17:59 Hct 41.1 % (34.0-47.0) 06/28/18 17:59 MCV 95.4 fL (81.0-99.0) 06/28/18 17:59 MCH 31.8 pg (27.0-31.0) H 06/28/18 17:59 MCHC 33.3 g/dL (33.0-37.0) 06/28/18 17:59 RDW 14.5 % (11.5-14.5) 06/28/18 17:59 Plt Count 246 K/uL (130-400) 06/28/18 17:59 MPV 11.6 fL (7.2-11.7) 06/28/18 17:59 Neut % (Auto) 43.5 % (50.0-75.0) L 06/28/18 17:59 Lymph % (Auto) 41.1 % (20.0-40.0) H 06/28/18 17:59 Lamar % (Auto) 11.0 % (0.0-10.0) H 06/28/18 17:59 Eos % (Auto) 3.2 % (0.0-4.0) 06/28/18 17:59 Baso % (Auto) 1.2 % (0.0-2.0) 06/28/18 17:59 Neut # (Auto) 2.1 K/uL (1.8-7.0) 06/28/18 17:59 Lymph # (Auto) 2.0 K/uL (1.0-4.3) 06/28/18 17:59 Lamar # (Auto) 0.5 K/uL (0.0-0.8) 06/28/18 17:59 Eos # (Auto) 0.2 K/uL (0.0-0.7) 06/28/18 17:59 Baso # (Auto) 0.1 K/uL (0.0-0.2) 06/28/18 17:59 PT 14.6 SECONDS (9.7-12.2) H 06/29/18 20:38 INR 1.3 06/29/18 20:38 APTT 36 SECONDS (21-34) H 06/28/18 23:55 Sodium 138 mmol/L (132-148) 06/30/18 07:20 Potassium 4.0 mmol/L (3.6-5.2) 06/30/18 07:20 Chloride 103 mmol/L (98-107) 06/30/18 07:20 Carbon Dioxide 26 mmol/L (22-30) 06/30/18 07:20 Anion Gap 13 (10-20) 06/30/18 07:20 BUN 9 mg/dL (7-17) 06/30/18 07:20 Creatinine 0.7 mg/dL (0.7-1.2) 06/30/18 07:20 Est GFR ( Amer) > 60 06/30/18 07:20 Est GFR (Non-Af Amer) > 60 06/30/18 07:20 Random Glucose 99 mg/dL (65-105) 06/30/18 07:20 Calcium 8.9 mg/dl (8.6-10.4) 06/30/18 07:20 Total Bilirubin 3.3 mg/dL (0.2-1.3) H 06/30/18 07:20 AST 875 U/L (14-36) H 06/30/18 07:20 ALT 1058 U/L (9-52) H 06/30/18 07:20 Alkaline Phosphatase 219 U/L (38-126) H D 06/30/18 07:20 Total Creatine Kinase 229 U/L (30-135) H 06/30/18 01:26 CK-MB (Mass) 1.73 ng/mL (0.0-3.38) 06/30/18 01:26 Troponin I < 0.0120 ng/mL (0.00-0.120) 06/30/18 01:26 Total Protein 9.7 g/dL (6.3-8.3) H 06/30/18 07:20 Albumin 4.1 g/dL (3.5-5.0) 06/30/18 07:20 Globulin 5.6 gm/dL (2.2-3.9) H 06/30/18 07:20 Albumin/Globulin Ratio 0.7 (1.0-2.1) L 06/30/18 07:20 Lipase 228 U/L (23-300) 06/28/18 17:59 Urine Color Yellow (YELLOW) 06/28/18 17:59 Urine Clarity Hazy (Clear) 06/28/18 17:59 Urine pH 7.0 (5.0-8.0) 06/28/18 17:59 Ur Specific [place] 1.006 (1.003-1.030) 06/28/18 17:59 Urine Protein Negative mg/dL (NEGATIVE) 06/28/18 17:59 Urine Glucose (UA) Normal mg/dL (Normal) 06/28/18 17:59 Urine Ketones Negative mg/dL (NEGATIVE) 06/28/18 17:59 Urine Blood Negative (NEGATIVE) 06/28/18 17:59 Urine Nitrate Negative (NEGATIVE) 06/28/18 17:59 Urine Bilirubin Negative (NEGATIVE) 06/28/18 17:59 Urine Urobilinogen Normal mg/dL (0.2-1.0) 06/28/18 17:59 Ur Leukocyte Esterase Neg José Manuel/uL (Negative) 06/28/18 17:59 Urine WBC (Auto) 6 /hpf (0-5) H 06/28/18 17:59 Urine RBC (Auto) 2 /hpf (0-3) 06/28/18 17:59 Ur Squamous Epith Cells 14 /hpf (0-5) H 06/28/18 17:59 Urine Bacteria Mod (<OCC) H 06/28/18 17:59 Urine HCG, Qual Negative (NEGATIVE) 06/28/18 17:59 ELHAM 6 Profile Negative (NEGATIVE) 06/30/18 07:20 Hepatitis A IgM Ab Negative (NEGATIVE) 06/28/18 23:55 Hep Bs Antigen Negative (NEGATIVE) 06/28/18 23:55 Hep B Core IgM Ab Negative (NEGATIVE) 06/28/18 23:55 Hepatitis C Antibody Negative (NEGATIVE) 06/28/18 23:55 - Hospital Course Hospital Course: admitted due to Dehydration weakness, found to have severe LFT elevation- placed on NPO, IVF , further GI evaluation MRI/MRCP not done , patient cancelled due to phobia, ELHAM negative, CT abdomen- biliary dilatation- US+ showed upper normal in post cholecystectomy, patient remained asymptomatic, no bleeding COag mild elevation, patient needs monitoring and advised no OTC herbal meds, alcohol, other factors that will affect liver. Patient aware of this condition and plan and wishes to go home. patient will be discharged today, will go for anothe blood test tomorrow and will RTC on thursday, has appointment with GI - Date & Time of H&P Date of H&P: 06/30/18 Time of H&P: 12:56 Discharge Exam - Head Exam Head Exam: ATRAUMATIC, NORMOCEPHALIC Discharge Plan - Follow Up Plan Condition: STABLE Disposition: HOME/ ROUTINE Instructions: Weakness (ED)
== END 2018-06-30 13:40 | disposition home or self-care (01) | DRG 443 ==
LOC: C.ER 13:36 → C.9E 23:16 → C.3T 06-29 13:52
PROVIDERS: ADMIT Internal Medicine; ATTEND Internal Medicine
DX: B17.9 Acute viral hepatitis, unspecified (principal); E86.0 Dehydration; R07.89 Other chest pain; Z53.20 Procedure and treatment not carried out because of patient's decision for unspecified reasons; F40.240 Claustrophobia; Z98.891 History of uterine scar from previous surgery; Z90.49 Acquired absence of other specified parts of digestive tract